=== PATIENT | male | born 1990 | race Caucasian/White ===

== ENCOUNTER → 2019-01-08 | Outpatient (CLI) | payer OTHER ==
--- NOTE | 2019-01-09 07:50 | REP ---
Right hand five views : The fifth digit PIP is maintained in flexion. There is no fracture or dislocation. There are no calcifications or foreign bodies. Mineralization joint spaces are otherwise unremarkable. Impression: The fifth digit PIP is maintained in flexion. This may indicate ligamentous injury. There is no fracture or dislocation. Electronically Signed by Chance Preston MD 01/09/2019 07:42 A
== END ==
LOC: M LRY 19:47
PROVIDERS: ATTEND Physician Assistant
DX: S69.91XA Unspecified injury of right wrist, hand and finger(s), initial encounter (principal); X58.XXXA Exposure to other specified factors, initial encounter; Y92.89 Other specified places as the place of occurrence of the external cause